=== PATIENT | female | born 1995 | race Caucasian/White ===

== ENCOUNTER 2019-11-12 08:32 | Emergency (ER) | payer BC ==
[~2019-11-12] VITALS: Ht 160 cm; Wt 55.9 kg
--- NOTE | 2019-11-12 08:47 | NUR ---
MANUFACTURING AREA MANAGER: URINE CUP AND CLEAN CATCH INSTRUCTIONS PROVIDED TO PT.
--- NOTE | 2019-11-12 09:04 | NUR ---
Assumed care of patient. C/O N/V/D and ABD pain x 4-5 days. Will continue to monitor.
[2019-11-12] MEDS ORDERED: MORPHINE SULFATE 4 MG/ML, 1ML IVPush PRN (09:30)
[2019-11-12] MEDS ORDERED: MORPHINE SULFATE 4 MG/ML, 1ML ONE (09:39)
[2019-11-12] MEDS ORDERED: METOCLOPRAMIDE 5 MG/ML, 2ML ONE (09:39)
--- NOTE | 2019-11-12 09:47 | NUR ---
Patient medicated and evaluated by MD Scott. Patient to US.
[2019-11-12 09:56] LABS: MICROSCOPIC AUTO
[2019-11-12] MEDS ORDERED: SODIUM CHLORIDE 0.9% 1,000ML IVBOLUS ONE (10:00)
[2019-11-12] MEDS ORDERED: METOCLOPRAMIDE 5 MG/ML, 2ML IVPush ONE (10:00)
[2019-11-12 10:01] LABS: BASOPHILS # (AUTO) 0.06 x10^3/uL (0-0.1); BASOPHILS % (AUTO) 1 % (0-1); EOSINOPHILS # (AUTO) 0.04 x10^3/uL (0-0.4); EOSINOPHILS % (AUTO) 1 % (1-7); LYMPHOCYTES # (AUTO) 1.48 x10^3/uL (1-3.4); LYMPHOCYTES % (AUTO) 20 % (22-44); MD NO; MEAN CORPUSCULAR HGB CONC 32.6 g/dL (32.4-35.8); MEAN CORPUSCULAR VOLUME 95.1 fL (80-100); MEAN PLATELET VOLUME 7.5 fL (7.4-10.4); MONOCYTES # (AUTO) 0.39 x10^3/uL (0.2-0.8); MONOCYTES % (AUTO) 5 % (2-9); NEUTROPHILS # (AUTO) 5.29 x10^3/uL (1.8-6.8); NEUTROPHILS % (AUTO) 73 % (42-75); PLATELET COUNT 301 x10^3/uL (130-400); RED BLOOD COUNT 4.42 x10^6/uL (3.82-5.3); RED CELL DISTRIBUTION WIDTH 13.2 % (9.6-15.2)
[2019-11-12 10:14] LABS: ALANINE AMINOTRANSFERASE 16 U/L (12-78); ALBUMIN 4.5 g/dL (3.4-5.0); ANION GAP 5 mmol/L (5-15); CALCIUM 9.4 mg/dL (8.5-10.1); CHLORIDE 113 mmol/L (98-107); CREATININE 0.75 mg/dL (0.55-1.02)
[2019-11-12 10:18] LABS: ALKALINE PHOSPHATASE 50 U/L (45-117); BILIRUBIN,TOTAL 0.8 mg/dL (0.2-1.0); TOTAL PROTEIN 7.4 g/dL (6.4-8.2)
[2019-11-12] MEDS ORDERED: SODIUM CHLORIDE FLUSH 10ML SYR IVF ONE (10:30)
--- NOTE | 2019-11-12 11:01 | NUR ---
Patient report feeling better. VSS.
--- NOTE | 2019-11-12 11:40 | NUR ---
Pelvic exam performed by THA Brown. Assisted by JOHN Orantes.
[2019-11-12 12:00] LABS: CLUE CELLS NONE SEEN (NONE SEEN); WET PREP WBCS FEW (FEW)
[2019-11-12] MEDS ORDERED: AZITHROMYCIN 500 MG TABLET PO ONE (12:00)
[2019-11-12] MEDS ORDERED: CEFTRIAXONE 250 MG IM ONE (12:00)
[2019-11-12] MEDS ORDERED: KETOROLAC 30 MG/1 ML IVPush ONE (12:00)
[2019-11-12 12:35] VITALS: BP 121/70
[2019-11-12] MEDS ORDERED: CEFTRIAXONE 250 MG ONE (12:41)
[2019-11-12] MEDS ORDERED: AZITHROMYCIN 250 MG TABLET ONE (12:41)
[2019-11-12] MEDS ORDERED: KETOROLAC 30 MG/1 ML ONE (12:41)
--- NOTE | 2019-11-12 12:57 | NUR ---
Patient/Caregiver given discharge instructions and they have confirmed that they understand the instructions. Patient ambulatory with steady gait.
== END 2019-11-12 13:00 | disposition home or self-care (01) ==
LOC: ED 09:31
DX: N83.291 Other ovarian cyst, right side (principal); A54.03 Gonococcal cervicitis, unspecified; A56.09 Other chlamydial infection of lower genitourinary tract; R10.32 Left lower quadrant pain; R10.31 Right lower quadrant pain; R11.2 Nausea with vomiting, unspecified; R19.7 Diarrhea, unspecified
CPT/HCPCS: 36415; 76830; 80053; 81001; 83690; 84703; 85025; 87086; 87210; 87491; 87591; 87808; 96361; 96372; 96374; 96375; 99285; J0696; J1885; J2270; J2765; J7030

== ENCOUNTER 2019-11-21 09:35 | Emergency (ER) | payer BC ==
[~2019-11-21] VITALS: Ht 160 cm; Wt 55.1 kg
--- NOTE | 2019-11-21 09:45 | NUR ---
PT CHANGED INTO GOWN UPON ROOM ARRIVAL. SITTING UP IN GURNEY, AWAKE. C/O NAUSEA AND INTERMITTENT ABD PAIN. PT CONTINUALLY MONITORED SPO2 AND BP. CALL LIGHT WITHIN REACH, FALL PRECAUTIONS IN PLACE.
[2019-11-21] MEDS ORDERED: FAMOTIDINE 20 MG/2 ML ONE (10:10)
[2019-11-21] MEDS ORDERED: ONDANSETRON 2MG/ML, 2ML ONE (10:10)
[2019-11-21] MEDS ORDERED: SODIUM CHLORIDE 0.9% 1,000ML IVBOLUS ONE (10:30)
[2019-11-21] MEDS ORDERED: ONDANSETRON 2MG/ML, 2ML IVPush ONE (10:30)
[2019-11-21] MEDS ORDERED: FAMOTIDINE 20 MG/2 ML IV ONE (10:30)
[2019-11-21 10:31] LABS: BASOPHILS # (AUTO) 0.03 x10^3/uL (0-0.1); BASOPHILS % (AUTO) 1 % (0-1); EOSINOPHILS # (AUTO) 0.02 x10^3/uL (0-0.4); EOSINOPHILS % (AUTO) 1 % (1-7); LYMPHOCYTES # (AUTO) 1.42 x10^3/uL (1-3.4); LYMPHOCYTES % (AUTO) 30 % (22-44); MD NO; MEAN CORPUSCULAR HGB CONC 32.8 g/dL (32.4-35.8); MEAN CORPUSCULAR VOLUME 94.4 fL (80-100); MEAN PLATELET VOLUME 7.4 fL (7.4-10.4); MONOCYTES # (AUTO) 0.38 x10^3/uL (0.2-0.8); MONOCYTES % (AUTO) 8 % (2-9); NEUTROPHILS # (AUTO) 2.97 x10^3/uL (1.8-6.8); NEUTROPHILS % (AUTO) 62 % (42-75); PLATELET COUNT 274 x10^3/uL (130-400); RED BLOOD COUNT 4.44 x10^6/uL (3.82-5.3); RED CELL DISTRIBUTION WIDTH 13.4 % (9.6-15.2)
[2019-11-21 10:41] LABS: ALANINE AMINOTRANSFERASE 18 U/L (12-78); ALBUMIN 4.5 g/dL (3.4-5.0); ANION GAP 5 mmol/L (5-15); CALCIUM 9.8 mg/dL (8.5-10.1); CHLORIDE 111 mmol/L (98-107)
[2019-11-21 10:46] LABS: ALKALINE PHOSPHATASE 45 U/L (45-117); BILIRUBIN,TOTAL 1.6 mg/dL (0.2-1.0); TOTAL PROTEIN 7.6 g/dL (6.4-8.2)
--- NOTE | 2019-11-21 11:03 | NUR ---
PT SITTING IN BED, NAD. VSS. PT STATES "NAUSEA IS BETTER AFTER THE MEDICINE". COMFORT MEASURES PROVIDED, CALL LIGHT WITHIN REACH, FALL PRECAUTIONS IN PLACE. NO NEEDS AT THIS TIME. VISITOR AT BEDSIDE.
[2019-11-21 11:08] LABS: MICROSCOPIC AUTO
--- NOTE | 2019-11-21 11:35 | NUR ---
ERP AT BEDSIDE DISCUSSING PLAN OF CARE, LAB RESULTS AND D/C INFORMATION. PT VERBALIZES UNDERSTANDING.
[2019-11-21 11:52] VITALS: BP 101/83
== END 2019-11-21 11:57 | disposition home or self-care (01) ==
LOC: ED 09:53
DX: R19.7 Diarrhea, unspecified (principal); R11.0 Nausea; R10.32 Left lower quadrant pain
CPT/HCPCS: 36415; 80053; 81001; 83690; 84703; 85025; 87086; 96361; 96374; 96375; 99284; J2405; J3490; J7030

== ENCOUNTER 2020-01-14 07:54 | Emergency (ER) | payer BC ==
[~2020-01-14] VITALS: Ht 160 cm; Wt 52.9 kg
[2020-01-14] MEDS ORDERED: LORazepam 2 MG/ML, 1ML ONE (08:23)
[2020-01-14] MEDS ORDERED: ONDANSETRON 2MG/ML, 2ML ONE (08:23)
[2020-01-14] MEDS ORDERED: ONDANSETRON 2MG/ML, 2ML IVPush ONE (08:30)
[2020-01-14] MEDS ORDERED: LORazepam 2 MG/ML, 1ML IVPush ONE (08:30)
[2020-01-14] MEDS ORDERED: SODIUM CHLORIDE 0.9% 1,000ML IVBOLUS ONE (08:30)
[2020-01-14] MEDS ORDERED: SODIUM CHLORIDE FLUSH 10ML SYR IVF ONE (08:30)
--- NOTE | 2020-01-14 08:50 | NUR ---
PT WC'D TO ROOM 18 W/ C/O NAUSEA AND ALLERGIC REACTION W/ NUMBNESS TO BILAT LEGS STARTED AFTER PT TOOK NEW RX AT 2100 LAST NOC. SX BEGAN SHORTLY AFTER. PT HAD C/O N/V, NUMBNESS AND "HEART RACING". PT RESTING ON GURNEY. NADN. MONITORS APPLIED. PT MEDICATED PER MAY. WARM BLANKET PROVIDED.
[2020-01-14 08:58] LABS: ALANINE AMINOTRANSFERASE 18 U/L (12-78); ALBUMIN 4.7 g/dL (3.4-5.0); ANION GAP 8 mmol/L (5-15); CALCIUM 9.4 mg/dL (8.5-10.1); CHLORIDE 109 mmol/L (98-107); CREATININE 0.91 mg/dL (0.55-1.02)
[2020-01-14 08:59] LABS: BASOPHILS % (AUTO) 1 % (0-1); EOSINOPHILS % (AUTO) 0 % (1-7); LYMPHOCYTES % (AUTO) 13 % (22-44); MEAN CORPUSCULAR HEMOGLOBIN 32.3 pg (27.0-34.8); MEAN CORPUSCULAR HGB CONC 34.4 g/dL (32.4-35.8); MEAN PLATELET VOLUME 7.7 fL (7.4-10.4); MONOCYTES % (AUTO) 6 % (2-9); NEUTROPHILS % (AUTO) 81 % (42-75); PLATELET COUNT 287 x10^3/uL (130-400); RED BLOOD COUNT 4.32 x10^6/uL (3.82-5.3)
[2020-01-14 09:00] LABS: MD NO
[2020-01-14 09:02] LABS: ALKALINE PHOSPHATASE 44 U/L (45-117); BILIRUBIN,TOTAL 1.6 mg/dL (0.2-1.0); TOTAL PROTEIN 7.8 g/dL (6.4-8.2)
[2020-01-14 09:37] VITALS: BP 95/56
== END 2020-01-14 09:39 | disposition home or self-care (01) ==
LOC: ED 08:18
DX: R00.2 Palpitations (principal); R55 Syncope and collapse; R11.2 Nausea with vomiting, unspecified; R07.89 Other chest pain; Z88.2 Allergy status to sulfonamides; Z79.899 Other long term (current) drug therapy
CPT/HCPCS: 36415; 71046; 80053; 84703; 85025; 85379; 93005; 96361; 96374; 96375; 99285; J2060; J2405; J7030